=== PATIENT | female | born 1955 | race Caucasian/White ===

== ENCOUNTER 2020-01-27 15:41 | Emergency (ER) | payer OTHER ==
[2020-01-27 15:57] VITALS: BP 167/97; PULSE 87; O2SAT 98
[2020-01-27] MEDS ORDERED: TORAdol 30 mg Injection IM ONE (15:58)
--- NOTE | 2020-01-27 15:59 | ERPHSYRPT ---
- History of Present Illness Time Seen by Provider: 01/27/20 15:50 Source: patient Exam Limitations: no limitations Patient Subjective Stated Complaint: Fall- left knee pain Triage Nursing Assessment: Patient ambulated back to ED and transferred self to bed. Patient A+O X3. Patient's skin pink, warm and dry. Patient complains of falling this am out of her porch landing on her bottom but left leg bent backwards. Patient complains of constant sharp pain while ambulating 10/10. No swelling or bruising noted. Pulses noted. Physician History: Patient is a 64-year-old female who presents to our ED with complaints of left knee pain. Patient states she was descending steps while wearing socks when her foot slipped causing her to fall onto her buttock. Patient twisted her left knee in the process. Pain described as an ache that is localized to the anterolateral aspect of the left knee. Pain worse with weightbearing. Pain improved with rest. No other injuries reported. Pain described as an ache that is well localized. No radiation. Injury occurred just prior to arrival. Patient voices no other complaints or concerns at this time. The fall was not associated with any sort of neuro cardiovascular symptomology. Method of Injury: twisted Occurred: just prior to arrival Quality: constant, sharpness Severity of Pain-Max: moderate Severity of Pain-Current: mild Lower Extremities Pain: knee: left Modifying Factors: Improves With: rest Associated Symptoms: none, No dizzy, No fainted, No seizure, No snapping sensation Allergies/Adverse Reactions: No Known Drug Allergies Allergy (Verified 01/27/20 15:48) Hx Tetanus, Diphtheria Vaccination/Date Given: Yes Hx Influenza Vaccination/Date Given: Yes Hx Pneumococcal Vaccination/Date Given: No Immunizations Up to Date: Yes Travel Risk - International Travel Have you traveled outside of the country in past 3 weeks: No Have you or anyone close to you been diagnosed with or: No Do your reside in a community with a known COVID-19 case?: Yes If Yes where:: [facility] - Coronavirus Screening Has patient experienced Coronavirus symptoms: No - Review of Systems Constitutional: No Symptoms, No Fever, No Chills Eyes: No Symptoms Ears, Nose, & Throat: No Symptoms Respiratory: No Symptoms, No Cough, No Dyspnea Cardiac: No Symptoms, No Chest Pain, No Edema, No Syncope Abdominal/Gastrointestinal: No Symptoms, No Abdominal Pain, No Nausea, No Vomiting, No Diarrhea Genitourinary Symptoms: No Symptoms, No Dysuria Musculoskeletal: No Symptoms, No Back Pain, No Neck Pain Skin: No Symptoms, No Rash Neurological: No Symptoms, No Dizziness, No Focal Weakness, No Sensory Changes Psychological: No Symptoms Endocrine: No Symptoms Hematologic/Lymphatic: No Symptoms Immunological/Allergic: No Symptoms All Other Systems: Reviewed and Negative - Past Medical History Pertinent Past Medical History: No Neurological History: Migraines Cardiac History: Hypertension Respiratory History: No Pertinent History Endocrine Medical History: No Pertinent History Musculoskeletal History: Degenerative Disk Disease Other Medical History: Pt to see wallpaperer - Past Surgical History Past Surgical History: Yes Female Surgical History: Hysterectomy - Social History Smoking Status: Current every day smoker How long have you smoked: years Exposure to second hand smoke: Yes Drug Use: none Patient Lives Alone: Yes - Female History Hx Now: No - Nursing Vital Signs Nursing Vital Signs: Initial Vital Signs Pulse Rate 87 01/27/20 15:50 Respiratory Rate 18 01/27/20 15:50 Blood Pressure 167/97 01/27/20 15:50 O2 Sat by Pulse Oximetry 98 01/27/20 15:50 Pain Scale Pain Intensity 10 - Physical Exam General Appearance: alert Eyes, Ears, Nose, Throat Exam: moist mucous membranes Neck Exam: normal inspection, non-tender, supple Cardiovascular/Respiratory Exam: chest non-tender, normal breath sounds, regular rate/rhythm, no respiratory distress Gastrointestinal/Abdominal Exam: non-tender, no organomegaly, guarding Back Exam: normal inspection, No vertebral tenderness Hips Exam: bilateral: non-tender, normal inspection, normal range of motion, no evidence of injury Legs Exam: right leg: non-tender, normal inspection, normal range of motion, no evidence of injury, abrasions, left leg: bone tenderness (Tenderness to palpation along the left fibular head.), pain Knees Exam: right knee: non-tender, no evidence of injury, left knee: normal inspection, normal range of motion, pain, soft tissue tenderness Ankle Exam: bilateral ankle: non-tender, normal inspection, normal range of motion, no evidence of injury Foot Exam: bilateral foot: non-tender, normal inspection, normal range of motion , no evidence of injury (PT DP pulses palpable. Compartments are soft. Cap refill less than 2 seconds.) Neuro/Tendon Exam: normal sensation, normal motor functions, normal tendon functions Mental Status Exam: alert, oriented x 3, cooperative Skin Exam: normal color, warm, dry SpO2 Interpretation: normal SpO2: 98 O2 Delivery: Room Air - Course Nursing assessment & vital signs reviewed: Yes - Radiology Exams Knee X-ray Interpretation: Teleradiologist Report (2 views of the left lower leg demonstrate normal bones, normal articulation and soft tissues.) Ordered Tests: Active Orders 24 hr Category Date Time Status Crutches STAT Care 01/27/20 15:58 Active KNEE (1 OR 2 VIEW) Stat Exams 01/27/20 15:57 Completed LOWER LEG Stat Exams 01/27/20 16:08 Completed Medication Summary Discontinued Medications Generic Name Dose Route Start Last Admin Trade Name Herbie PRN Reason Stop Dose Admin Ketorolac Tromethamine 30 mg 01/27/20 15:58 01/27/20 16:03 Toradol 30 Mg Injection IM 01/27/20 15:59 30 mg STAT ONE Administration Ketorolac Tromethamine Confirm 01/27/20 16:00 Toradol 30 Mg Injection Administered 01/27/20 16:01 Dose 30 mg .ROUTE .[employer]-MED ONE - Progress Progress: improved Progress Note: 01/27/20 16:33 Patient reassessed. Pain improved. X-ray negative for acute pathology. There is a possibility that there may be injury to her knee that is non-bony and therefore will not be seen on the x-ray. Patient given bilateral axillary crutches. She will maintain nonweightbearing until told otherwise by her primary care physician. Patient understands that if symptoms persist she may require repeat imaging or possible MRI for further evaluation. Patient states she is ready for discharge. Counseled pt/family regarding: diagnosis, need for follow-up, rad results - Departure Departure Disposition: Home Clinical Impression: Left knee sprain, Fall Condition: Stable Critical Care Time: No Referrals: BENJAMÍN MARTIN [Primary Care Provider] - Instructions: Preventing Falls Additional Instructions: Discharge/Care Plan DAY,DANILO OSORIO was seen on 01/27/20 in the Emergency Room. The patient was counseled regarding Diagnosis,Lab results, Imaging studies, need for follow up and when to return to the Emergency Room. Prescriptions given: Discharge Note I have spoken with the patient and/or caregivers. I have explained the patient' s condition, diagnosis and treatment plan based on the information available to me at this time. I have answered the patient's and/or caregiver's questions and addressed any concerns. The patient and/or caregivers have as good understanding of the patient's diagnosis, condition and treatment plan as can be expected at this point. The vital signs have been stable. The patient's condition is stable and appropriate for discharge from the emergency department. The patient will pursue further outpatient evaluation with the primary care physician or other designated or consulting physician as outlined in the discharge instructions. The patient and/or caregivers are agreeable to this plan of care and follow-up instructions have been explained in detail. The patient and/or caregivers have received these instruction. The patient/and or caregivers are aware that any significant change in condition or worsening of symptoms should prompt an immediate return to this or the closest emergency department or call 911.
[2020-01-27] MEDS ORDERED: TORAdol 30 mg Injection ONE (16:00)
--- NOTE | 2020-01-27 16:25 | XRAY ---
Indication: Pain following fall. Comparison: None 2 view left lower leg demonstrates normal bones, articulation, and soft tissues.
--- NOTE | 2020-01-27 16:29 | XRAY ---
Indication: Pain following fall. Comparison: None AP/lateral left knee obtained. No bony, articular, or soft tissue abnormalities.
== END 2020-01-27 16:40 | disposition home or self-care (01) ==
LOC: ED 15:41
DX: S83.92XA Sprain of unspecified site of left knee, initial encounter (principal); W01.198A Fall on same level from slipping, tripping and stumbling with subsequent striking against other object, initial encounter; X50.1XXA Overexertion from prolonged static or awkward postures, initial encounter; Y92.89 Other specified places as the place of occurrence of the external cause; M25.562 Pain in left knee
CPT/HCPCS: 73560; 73590; 96372; 99284; J1885

== ENCOUNTER 2021-01-26 08:58 | Day surgery (SDC) | payer OTHER ==
[~2021-01-26 08:58] MED LIST: Ak-Dilate OPHTHALMIC*** 1.065 ML, Cyclogyl 1% OPHTH SOL 5 ML 1.065 ML, GATIFLOXACIN 0.5... OP ONE; BETADINE 5% OPHTHALMIC 30 ML OP ONE; Lactated Ringers 1,000 ML IV SCH; NON-FORMULARY ITEM OP ONE; TETRACAINE 0.5% STERI-UNIT SOL OP ONE; cefUROXime sodium 0.005 GM in Sodium Chloride Flush 30 ML*** 0.5 ML IJ SCH
[2021-01-26] MEDS ORDERED: Zofran 4 MG/2 ML VIAL IV PRN (09:00)
[2021-01-26] MEDS ORDERED: ACETAZOLAMIDE 250 MG TABLET PO ONE (09:00)
[2021-01-26] MEDS ORDERED: Lactated Ringers 1,000 ML IV ONE (09:25)
[2021-01-26] MEDS ORDERED: LIDOCAINE HCL 1% 50 MG/5 ML VL PF IJ ONE (10:00)
[2021-01-26] MEDS ORDERED: Epinephrine Preservative Free 1 MG/ML INTRAOP ONE (10:00)
[2021-01-26] MEDS ORDERED: DIPRIVAN 200 MG/20 ML IV ONE (10:30)
[2021-01-26 11:45] VITALS: BP 132/88; PULSE 66; O2SAT 98
== END 2021-01-26 11:45 | disposition home or self-care (01) ==
LOC: SDC 08:58
PROVIDERS: ATTEND Ophthalmology
DX: H25.812 Combined forms of age-related cataract, left eye (principal); I10 Essential (primary) hypertension; F41.9 Anxiety disorder, unspecified; G47.00 Insomnia, unspecified; Z79.899 Other long term (current) drug therapy
CPT/HCPCS: C1780; J0171; J2001; J2704; A9270-GY

== ENCOUNTER 2021-02-23 07:34 | Day surgery (SDC) | payer OTHER ==
[2021-02-23] MEDS ORDERED: Lactated Ringers 1,000 ML IV ONE (07:48)
[2021-02-23] MEDS ORDERED: ACETAZOLAMIDE 250 MG TABLET PO ONE (09:00)
[2021-02-23] MEDS ORDERED: Zofran 4 MG/2 ML VIAL IV PRN (09:00)
[2021-02-23] MEDS ORDERED: LIDOCAINE HCL 1% 50 MG/5 ML VL PF IJ ONE (10:00)
[2021-02-23] MEDS ORDERED: Epinephrine Preservative Free 1 MG/ML INTRAOP ONE (10:00)
[2021-02-23] MEDS ORDERED: DIPRIVAN 200 MG/20 ML IV ONE ×2 (10:16→10:35)
[2021-02-23 11:27] VITALS: BP 148/76; PULSE 69; O2SAT 98
== END 2021-02-23 11:25 | disposition home or self-care (01) ==
LOC: SDC 07:34
PROVIDERS: ATTEND Ophthalmology
DX: H25.811 Combined forms of age-related cataract, right eye (principal); I10 Essential (primary) hypertension; Z79.899 Other long term (current) drug therapy
CPT/HCPCS: 66982; C1780; J0171; J2001; J2704; A9270-GY

== ENCOUNTER 2022-07-09 09:33 | Emergency (ER) | payer OTHER ==
--- NOTE | 2022-07-09 09:55 | ERPHSYRPT ---
- History of Present Illness Time Seen by Provider: 07/09/22 09:54 Source: patient Physician History: This is a 66-year-old white female patient of nurse practitioner Rene who fell off of a cooler onto her lower back approxi-1 week ago. The pain subsided in this area after 1 to 2 days. Then again, approximately 3 days ago patient stepped into a hole and fell onto her lower back and now has difficulty going from a sitting position to standing position because of the pain. Patient denies right hip pain. She states that she does feel some pain in her right groin region as well. She is able to ambulate. She did not hit her head. She has no headache and she has no neck pain. Timing/Duration: day(s) (3) Method of Injury: fall Quality: radiating, sharp Back Pain Location: lumbar spine, coccyx, paraspinous muscles Severity of Pain-Max: moderate Severity of Pain-Current: moderate Modifying Factors: Improves With: movement Associated Symptoms: lower back pain, muscle spasms, No urinary incontinence, No loss of bowel control, No constipation, No problems urinating, No numbness in le gs/feet, No sensory/motor loss Previous symptoms: no prior history Allergies/Adverse Reactions: doxycycline Adverse Reaction (Severe, Verified 07/09/22 10:02) Swelling of Face Home Medications: lisinopriL [Lisinopril] 40 mg PO DAILY 01/13/21 [History] Amlodipine Besylate 5 mg [Norvasc 5 mg] 5 mg PO DAILY 07/09/22 [History] Buspirone HCl 10 mg PO BID PRN 07/09/22 [History] Hx Tetanus, Diphtheria Vaccination/Date Given: Yes Hx Influenza Vaccination/Date Given: Yes Hx Pneumococcal Vaccination/Date Given: No Travel Risk - International Travel Have you traveled outside of the country in past 3 weeks: No - Coronavirus Screening Are you exhibiting any of the following symptoms?: No Close contact with a COVID-19 positive Pt in past 14-21 Days: No - Review of Systems Constitutional: No Symptoms Eyes: No Symptoms Ears, Nose, & Throat: No Symptoms Respiratory: No Symptoms Cardiac: No Symptoms Abdominal/Gastrointestinal: No Symptoms Genitourinary Symptoms: No Symptoms Musculoskeletal: Back Pain, Fall Skin: No Symptoms Neurological: No Symptoms Psychological: No Symptoms Endocrine: No Symptoms Hematologic/Lymphatic: No Symptoms Immunological/Allergic: No Symptoms All Other Systems: Reviewed and Negative - Past Medical History Pertinent Past Medical History: Yes Neurological History: Migraines ENT History: Cataracts, Glaucoma Cardiac History: Hypertension Respiratory History: No Pertinent History Endocrine Medical History: No Pertinent History Musculoskeletal History: Arthritis, Degenerative Disk Disease GI Medical History: No Pertinent History History: No Pertinent History Psycho-Social History: Anxiety Female Reproductive Disorders: No Pertinent History Other Medical History: arthritis/back pain, - Past Surgical History Past Surgical History: Yes Neuro Surgical History: No Pertinent History Cardiac: No Pertinent History Respiratory: No Pertinent History Gastrointestinal: No Pertinent History Genitourinary: No Pertinent History Musculoskeletal: Orthopedic Surgery Female Surgical History: Hysterectomy Other Surgical History: left carpal tunnel repair,left ectopic prgnancy / ooperectomy/salpingoectomy left side - Social History Smoking Status: Former smoker How long have you smoked: years Exposure to second hand smoke: No Drug Use: none Patient Lives Alone: Yes - Nursing Vital Signs Nursing Vital Signs: Initial Vital Signs Temperature 97.4 F 07/09/22 09:43 Pulse Rate 67 07/09/22 09:43 Blood Pressure 122/79 07/09/22 09:43 O2 Sat by Pulse Oximetry 99 07/09/22 09:43 Pain Scale Pain Intensity [Right Lateral 10 Distal Back] Pain Intensity 10 - Physical Exam General Appearance: no apparent distress, alert Eye Exam: PERRL/EOMI, eyes nml inspection Ears, Nose, Throat Exam: normal ENT inspection, moist mucous membranes Neck Exam: normal inspection, non-tender, supple, full range of motion Respiratory Exam: normal breath sounds, lungs clear, airway intact, No chest tenderness, No respiratory distress Cardiovascular Exam: regular rate/rhythm, normal heart sounds, normal peripheral pulses Gastrointestinal Exam: soft, normal bowel sounds, No tenderness Pelvic Exam: not done Rectal Exam: not done Back Exam: normal inspection, vertebral tenderness (Lumbar spine region), decreased range of motion, muscle spasm Extremity Exam: normal inspection, normal range of motion, pelvis stable Neurologic Exam: alert, oriented x 3, cooperative, 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, normal mood/affect, nml cerebellar function, nml station & gait, sensation nml Skin Exam: normal color, warm, dry Lymphatic Exam: No adenopathy SpO2 Interpretation: normal O2 Delivery: Room Air - Course Nursing assessment & vital signs reviewed: Yes Ordered Tests: Active Orders 24 hr Category Date Time Status LUMBAR LIMITED (2 OR 3 VIEWS) Stat Exams 07/09/22 10:20 Taken PELVIS (1 OR 2 VIEWS) Stat Exams 07/09/22 10:20 Taken Medication Summary Discontinued Medications Generic Name Dose Route Start Last Admin Trade Name Herbie PRN Reason Stop Dose Admin Methylprednisolone Sodium 0 mg 07/09/22 10:19 07/09/22 10:33 Succinate 125 mg/ Sterile IM 07/09/22 10:20 125 mg Water 2 ml STAT ONE Administration Methylprednisolone Sodium Succinate Confirm 07/09/22 10:32 Methylprednis Sod Succ 125 Mg/2 Ml Vial Administered 07/09/22 10:33 Dose 125 mg .ROUTE .STK-MED ONE Orphenadrine Citrate 60 mg 07/09/22 10:19 07/09/22 10:33 Orphenadrine Citrate 60 Mg/2 Ml Vial IM 07/09/22 10:20 60 mg STAT ONE Administration Orphenadrine Citrate Confirm 07/09/22 10:32 Orphenadrine Citrate 60 Mg/2 Ml Vial Administered 07/09/22 10:33 Dose 60 mg .ROUTE .STK-MED ONE Oxycodone/Acetaminophen 1 tab 07/09/22 10:18 07/09/22 10:33 Oxycodone Hcl/Apap 5 Mg/325 Mg Tablet PO 07/09/22 10:19 1 tab STAT STA Administration Oxycodone/Acetaminophen Confirm 07/09/22 10:31 Oxycodone Hcl/Apap 5 Mg/325 Mg Tablet Administered 07/09/22 10:32 Dose 1 tab .ROUTE .STK-MED ONE Sterile Water Confirm 07/09/22 10:31 Water For Injection,Sterile 10 Ml Vial Administered 07/09/22 10:32 Dose 10 ml IJ .STK-MED ONE - Progress Progress: improved, pain not gone completely Progress Note: 07/09/22 11:26 X-ray of pelvis shows no acute fracture or dislocation. X-ray of lumbar spine shows no acute fracture or subluxation. Counseled pt/family regarding: diagnosis, need for follow-up, rad results - Departure Departure Disposition: Home Clinical Impression: Back pain Condition: Stable Critical Care Time: No Referrals: AZAM NEWTON NP [Primary Care Provider] - Follow up/PCP as directed Additional Instructions: Take your medication as prescribed. Activity as tolerated. Follow-up with your primary care physician on 07/11/2022 if your pain is persisting. Prescriptions: Oxycodone HCl/Acetaminophen [Percocet 5-325 mg Tablet] 1 each PO Q8H PRN PRN #6 tablet MDD 3 PRN Reason: Moderate To Severe Pain Orphenadrine Citrate 100 mg [Norflex 100 MG Tablet] 100 mg PO BID #10 tab
[2022-07-09 10:03] VITALS: BP 122/79; PULSE 67; O2SAT 99
[2022-07-09] MEDS ORDERED: PERCOCET TABLET 5/325MG PO STA (10:18)
[2022-07-09] MEDS ORDERED: solu-MEDROL 125 MG, Sterile H2O 10 ml 2 ML IM ONE ×2 (10:19)
[2022-07-09] MEDS ORDERED: Norflex 60 MG/2 ML IM ONE (10:19)
[2022-07-09] MEDS ORDERED: Sterile H2O 10 ml IJ ONE (10:31)
[2022-07-09] MEDS ORDERED: PERCOCET TABLET 5/325MG ONE (10:31)
[2022-07-09] MEDS ORDERED: solu-MEDROL ONE (10:32)
[2022-07-09] MEDS ORDERED: Norflex 60 MG/2 ML ONE (10:32)
--- NOTE | 2022-07-09 18:55 | XRAY ---
Indication: Pain following fall. Comparison: None Single AP pelvis demonstrates mild osteopenia. No other bony, articular, or soft tissue abnormalities.
--- NOTE | 2022-07-09 18:57 | XRAY ---
Indication: Pain following fall. Comparison: July 08, 2020 3 view lumbar spine unchanged again demonstrating mild osteopenia, minimal dextroscoliosis centered at L4, mild multilevel degenerative changes again greatest at L5-S1, and mild aortic calcifications. No new/acute abnormalities.
== END 2022-07-09 12:06 | disposition home or self-care (01) ==
LOC: ED 09:33
DX: M54.50 Low back pain, unspecified (principal); W18.42XA Slipping, tripping and stumbling without falling due to stepping into hole or opening, initial encounter; I10 Essential (primary) hypertension; Z79.891 Long term (current) use of opiate analgesic; Z79.899 Other long term (current) drug therapy
CPT/HCPCS: 72100; 72170; 96372; 99284; J2360; J2930; A9270-GY

== ENCOUNTER 2023-09-23 12:48 | Emergency (ER) | payer MEDICARE, OTHER ==
[2023-09-23 13:05] VITALS: TEMP 98.6
[2023-09-23] MEDS ORDERED: DUONEB 0.5-3 MG/3 ml Neb IH ONE ×2 (13:11→13:19)
[2023-09-23 13:29] LABS: Absolute Neutrophil Ct (ANC) 2.95 x10^3/uL (1.4-6.9); BASOPHIL % 0.7 % (0.0-0.4); Basophil (Absolute #) 0.03 x10^3/uL (0-0.4); Eosinophil % 1.8 % (0.00-5.0); Eosinophil (Absolute #) 0.08 x10^3/uL (0-0.5); Hematocrit 40.6 % (35-47); Hemoglobin 13.3 g/dL (12.0-16.0); IMMATURE GRAN # 0.01 x10^3u/L (0.00-0.03); IMMATURE GRAN % 0.2 % (0.00-0.4); Lymphocyte (Absolute #) 0.98 x10^3/uL (1.0-4.6); Lymphocytes % 21.9 % (24.0-44.0); Mean Cell Volume 90.4 fL (78-100); Mean Corpuscular Hemoglobin 29.6 pg (26-32); Mean Corpuscular Hgb Concent. 32.8 g/dL (32-36); Mean Platelet Volume 10.3 fL (7.5-11.0); Monocyte (Absolute #) 0.43 x10^3/uL (0.0-1.3); Monocytes % 9.6 % (0.0-12.0); Neutrophil % 65.8 % (36.0-66.0); Platelet Count 355 x10^3/uL (150-450); Red Blood Count 4.49 x10^6/uL (4.1-5.4); Red Cell Distribution Width 13.7 % (11.5-14.0); White Blood Count 4.5 x10^3/uL (4.0-10.5)
[2023-09-23 13:43] LABS: ALBUMIN 4.8 g/dL (3.5-5.0); ANION GAP 13.2 MEQ/L (5-15); BILIRUBIN,TOTAL 0.7 mg/dL (0.2-1.3); Calcium 10.1 mg/dL (8.4-10.2); Creatinine 1 0.75 mg/dL (0.52-1.04); EST GLOMERULAR FILTRATION RATE 88.3 ML/MIN; MAGNESIUM 2.1 mg/dL (1.6-2.3); Potassium 3.6 mmol/L (3.5-5.1); Total Protein 8.3 g/dL (6.3-8.2)
[2023-09-23 14:11] LABS: INFLUENZA B NEGATIVE (NEGATIVE); RESPIRATORY SYNCTIAL VIRUS NEGATIVE (NEGATIVE); SARS-CoV-2 Xpert Express NEGATIVE (NEGATIVE)
[2023-09-23 14:15] LABS: INFLUENZA A POSITIVE (NEGATIVE)
[2023-09-23 14:27] LABS: PROCALCITONIN 0.065 ng/mL (0.030-0.080)
[2023-09-23 14:45] VITALS: O2SAT 96
--- NOTE | 2023-09-23 14:55 | ERPHSYRPT ---
- History of Present Illness Time Seen by Provider: 09/23/23 13:06 Source: patient Exam Limitations: no limitations Patient Subjective Stated Complaint: C/O SOB for a few days especially with exertion. Patient states she has had a cough longer than that. Denies fever. Denies pain. Triage Nursing Assessment: Patient ambulated back to ER wearing a mask. She has an occassional, dry, non-productive cough. SOB present with exertion but not at rest. Lungs clear. Skin tone normal. ELIOT BANEGAS. Physician History: 67 years old female with history of tobacco use, hypertension, anxiety presented in the ER with complains of cough congestion and difficulty breathing. Patient reported started as a URI symptoms with runny nose and gradually sore throat and coughing more. It was initially dry but gradually having clear to yellow sputum small in amount with generalized chest soreness and some difficulty breathing and worn out feeling with exertion. No history of coronary artery disease. This has been going on for couple of days and got worse yesterday. Denies any fever or chills but does have mild headache. Positive c ontact with COVID-19. No abdominal pain nausea or vomiting reported. EKG is normal sinus rhythm at a rate of [address] elevations or depressions. Allergies/Adverse Reactions: doxycycline Adverse Reaction (Severe, Verified 09/23/23 12:54) Swelling of Face Home Medications: lisinopriL [Lisinopril] 40 mg PO DAILY 01/13/21 [History] Amlodipine Besylate 5 mg [Norvasc 5 mg] 5 mg PO DAILY 07/09/22 [History] Escitalopram Oxalate [Lexapro] 20 mg PO DAILY 09/23/23 [History] Lorazepam 1 mg [Ativan 1 MG] 1 tab PO TID PRN 09/23/23 [History] Hx Tetanus, Diphtheria Vaccination/Date Given: Yes Hx Influenza Vaccination/Date Given: No Hx Pneumococcal Vaccination/Date Given: No Immunizations Up to Date: Yes Travel Risk - International Travel Have you traveled outside of the country in past 3 weeks: No - Coronavirus Screening Are you exhibiting any of the following symptoms?: Yes Symptoms: Cough: New Onset, Shortness of Breath Close contact with a COVID-19 positive Pt in past 14-21 Days: Yes - Vaccine Status Have you recieved a Covid-19 vaccination: No - Review of Systems Constitutional: Fatigue Eyes: No Symptoms Ears, Nose, & Throat: Nose Congestion, Throat Swelling Respiratory: Cough, Dyspnea Cardiac: Chest Pain Abdominal/Gastrointestinal: No Symptoms Genitourinary Symptoms: No Symptoms Musculoskeletal: Arthralgias Skin: No Symptoms Neurological: Headache Endocrine: No Symptoms Hematologic/Lymphatic: No Symptoms - Past Medical History Pertinent Past Medical History: Yes Neurological History: Migraines ENT History: Cataracts, Glaucoma Cardiac History: Hypertension Respiratory History: No Pertinent History Endocrine Medical History: No Pertinent History Musculoskeletal History: Arthritis, Degenerative Disk Disease GI Medical History: No Pertinent History History: No Pertinent History Psycho-Social History: Anxiety, Depression Female Reproductive Disorders: No Pertinent History Other Medical History: arthritis/back pain, - Past Surgical History Past Surgical History: Yes Neuro Surgical History: No Pertinent History Cardiac: No Pertinent History Respiratory: No Pertinent History Gastrointestinal: No Pertinent History Genitourinary: No Pertinent History Musculoskeletal: Orthopedic Surgery Female Surgical History: Hysterectomy Other Surgical History: left carpal tunnel repair, left ectopic prgnancy / ooperectomy/salpingoectomy left side - Social History Smoking Status: Current every day smoker How long have you smoked: 20 years Exposure to second hand smoke: No Drug Use: none Patient Lives Alone: Yes - Nursing Vital Signs Nursing Vital Signs: Initial Vital Signs Temperature 98.6 F 09/23/23 12:57 Pulse Rate 83 09/23/23 12:57 Respiratory Rate 22 09/23/23 12:57 Blood Pressure 146/93 09/23/23 12:57 O2 Sat by Pulse Oximetry 97 09/23/23 12:57 Pain Scale Pain Intensity 0 - Physical Exam General Appearance: no apparent distress, alert Eye Exam: PERRL/EOMI Ears, Nose, Throat Exam: moist mucous membranes, pharyngeal erythema Neck Exam: normal inspection, non-tender, supple, full range of motion Respiratory Exam: normal breath sounds, lungs clear Cardiovascular Exam: regular rate/rhythm, normal heart sounds Gastrointestinal/Abdomen Exam: soft, normal bowel sounds, No tenderness Back Exam: normal inspection, normal range of motion Neurologic Exam: alert, oriented x 3, cooperative, office associate II-XII nml as tested Skin Exam: normal color SpO2 Interpretation: normal SpO2: 96 O2 Delivery: Room Air - Course EKG Interpreted by Me: RATE ([id number]), Sinus Rhythm, NORMAL AXIS, NORMAL INTERVALS, NORMAL QRS Ordered Tests: Active Orders 24 hr Category Date Time Status Contingents Supervisor STAT Care 09/23/23 13:12 Active EKG-ER Only STAT Care 09/23/23 13:11 Active IV Insertion STAT Care 09/23/23 13:11 Active CHEST 1 VIEW (PORTABLE) Stat Exams 09/23/23 13:12 Taken BLOOD CULTURE Stat Lab 09/23/23 13:40 Received CBC W DIFF Stat Lab 09/23/23 13:20 Completed CMP Stat Lab 09/23/23 13:20 Completed Lactic Acid Stat Lab 09/23/23 13:25 Completed MAGNESIUM Stat Lab 09/23/23 13:20 Completed NT PRO BNPII Stat Lab 09/23/23 13:20 Completed PROCALCITONIN Stat Lab 09/23/23 13:20 Completed TROPONIN Q4H Lab 09/23/23 13:20 Completed TROPONIN Q4H Lab 09/23/23 17:15 Ordered TROPONIN Q4H Lab 09/23/23 21:15 Ordered Respiratory Therapy Assessment DAILY RT 09/23/23 13:24 Active Medication Summary Discontinued Medications Generic Name Dose Route Start Last Admin Trade Name Freq PRN Reason Stop Dose Admin Albuterol/Ipratropium 3 ml 09/23/23 13:11 09/23/23 13:24 Ipratropium/Albuterol Sulfate 3 Ml Ampul.Neb IH 09/23/23 13:12 3 ml STAT ONE Administration Albuterol/Ipratropium Confirm 09/23/23 13:19 Ipratropium/Albuterol Sulfate 3 Ml Ampul.Neb Administered 09/23/23 13:20 Dose 3 ml IH .STK-MED ONE Lab/Rad Data: Laboratory Result Diagrams 09/23/23 13:20 09/23/23 13:20 Laboratory Results 09/23/23 09/23/23 09/23/23 Range/Units 13:25 13:20 13:20 WBC (4.0-10.5) x10^3/uL RBC (4.1-5.4) x10^6/uL Hgb (12.0-16.0) g/dL Hct (35-47) % MCV (78-100) fL MCH (26-32) pg MCHC (32-36) g/dL RDW (11.5-14.0) % Plt Count (150-450) x10^3/uL MPV (7.5-11.0) fL Gran % (36.0-66.0) % Immature Gran % (Auto) (0.00-0.4) % Nucleat RBC Rel Count (0.00-0.1) % Eos # (Auto) (0-0.5) x10^3/uL Immature Gran # (Auto) (0.00-0.03) x10^3u/L Absolute Lymphs (auto) (1.0-4.6) x10^3/uL Absolute Monos (auto) (0.0-1.3) x10^3/uL Absolute Nucleated RBC (0.00-0.01) x10^3u/L Lymphocytes % (24.0-44.0) % Monocytes % (0.0-12.0) % Eosinophils % (0.00-5.0) % Basophils % (0.0-0.4) % Absolute Granulocytes (1.4-6.9) x10^3/uL Basophils # (0-0.4) x10^3/uL Sodium (137-145) mmol/L Potassium (3.5-5.1) mmol/L Chloride (98-107) mmol/L Carbon Dioxide (22-30) mmol/L Anion Gap (5-15) MEQ/L BUN (7-17) mg/dL Creatinine (0.52-1.04) mg/dL Estimated GFR ML/MIN Glucose (74-106) mg/dL Lactic Acid 1.0 (0.4-2.0) Calcium (8.4-10.2) mg/dL Magnesium (1.6-2.3) mg/dL Total Bilirubin (0.2-1.3) mg/dL AST (14-36) U/L ALT (0-35) U/L Alkaline Phosphatase (38-126) U/L Troponin I (0.000-0.034) ng/mL NT-Pro-B Natriuret Pep 58.0 (<300) pg/mL Serum Total Protein (6.3-8.2) g/dL Albumin (3.5-5.0) g/dL Procalcitonin 0.065 (0.030-0.080) ng/mL Influenza Type A Ag POSITIVE (NEGATIVE) Influenza Type B Ag NEGATIVE (NEGATIVE) RSV (PCR) NEGATIVE (NEGATIVE) SARS-CoV-2 (PCR) NEGATIVE (NEGATIVE) 09/23/23 09/23/23 09/23/23 Range/Units 13:20 13:20 13:20 WBC 4.5 (4.0-10.5) x10^3/uL RBC 4.49 (4.1-5.4) x10^6/uL Hgb 13.3 (12.0-16.0) g/dL Hct 40.6 (35-47) % MCV 90.4 (78-100) fL MCH 29.6 (26-32) pg MCHC 32.8 (32-36) g/dL RDW 13.7 (11.5-14.0) % Plt Count 355 (150-450) x10^3/uL MPV 10.3 (7.5-11.0) fL Gran % 65.8 (36.0-66.0) % Immature Gran % (Auto) 0.2 (0.00-0.4) % Nucleat RBC Rel Count 0.0 (0.00-0.1) % Eos # (Auto) 0.08 (0-0.5) x10^3/uL Immature Gran # (Auto) 0.01 (0.00-0.03) x10^3u/L Absolute Lymphs (auto) 0.98 L (1.0-4.6) x10^3/uL Absolute Monos (auto) 0.43 (0.0-1.3) x10^3/uL Absolute Nucleated RBC 0.00 (0.00-0.01) x10^3u/L Lymphocytes % 21.9 L (24.0-44.0) % Monocytes % 9.6 (0.0-12.0) % Eosinophils % 1.8 (0.00-5.0) % Basophils % 0.7 (0.0-0.4) % Absolute Granulocytes 2.95 (1.4-6.9) x10^3/uL Basophils # 0.03 (0-0.4) x10^3/uL Sodium 135 L (137-145) mmol/L Potassium 3.6 (3.5-5.1) mmol/L Chloride 105 (98-107) mmol/L Carbon Dioxide 21 L (22-30) mmol/L Anion Gap 13.2 (5-15) MEQ/L BUN 14 (7-17) mg/dL Creatinine 0.75 (0.52-1.04) mg/dL Estimated GFR 88.3 ML/MIN Glucose 136 H (74-106) mg/dL Lactic Acid (0.4-2.0) Calcium 10.1 (8.4-10.2) mg/dL Magnesium 2.1 (1.6-2.3) mg/dL Total Bilirubin 0.70 (0.2-1.3) mg/dL AST 27 (14-36) U/L ALT 26 (0-35) U/L Alkaline Phosphatase 75 (38-126) U/L Troponin I < 0.012 (0.000-0.034) ng/mL NT-Pro-B Natriuret Pep (<300) pg/mL Serum Total Protein 8.3 H (6.3-8.2) g/dL Albumin 4.8 (3.5-5.0) g/dL Procalcitonin (0.030-0.080) ng/mL Influenza Type A Ag (NEGATIVE) Influenza Type B Ag (NEGATIVE) RSV (PCR) (NEGATIVE) SARS-CoV-2 (PCR) (NEGATIVE) - Progress Progress: improved, re-examined Air Movement: good Progress Note: 09/23/23 14:59 67-year-old is evaluated for cough congestion with some dyspnea which initially started as a URI symptoms. Patient is not tachypneic or tachycardic. She is maintaining oxygen saturation around 97% on room air. EKG is normal sinus rhythm. Lungs fairly clear to auscultation. She is given DuoNeb as she has a history of tobacco use and feeling better on reevaluation with improvement in the tightness. Chest x-ray reviewed by me is negative for any acute cardiopulmonary findings, official report is pending. Patient has normal white count, fairly unremarkable chemistries including lactate and procalcitonin, negative troponins. Patient has positive influenza A but negative COVID and influenza B. Symptoms does not seem to be cardiac but more of a infectious etiology. Not concerned about pulmonary embolism. I will treat her with Childers iflu and will also give albuterol to use as needed and continue with Mucinex. Discussed signs symptoms of worsening needing return to ER which she seems understanding. Stable for discharge. 09/23/23 15:02 Blood Culture(s) Obtained: No Antibiotics given: Yes, No Counseled pt/family regarding: lab results, diagnosis, need for follow-up, rad results Medical Desision Making - Independent Historian Additional History obtained from: Child - Diagnostic Testing Diagnostic test were ordered, analyzed, and reviewed by me: Yes Radiological Interpretation: Interpreted by me, Reviewed by me - Risk of complications The pt has a mod risk of morbidity or mortality based on: Need for prescription drug management - Departure Departure Disposition: Home Clinical Impression: Influenza A, Viral URI with cough Condition: Stable Critical Care Time: No Referrals: LUIS MON MD [Primary Care Provider] - Follow up with PCP 2 days Instructions: Flu, Adult (DC) Additional Instructions: Use inhaler as needed. Take Tylenol/ibuprofen for fever chills, body aches. D rink plenty of fluids to keep yourself well-hydrated. Take ofyu-sby-yfcusio Mucinex as needed. Follow-up with primary care for reevaluation. Return to ER for worsening cough congestion or if having difficulty breathing etc. Prescriptions: Albuterol Sulfate [Albuterol Sulfate Hfa] 8.5 gm IH Q6H PRN 7 Days #1 inh PRN Reason: Cough Oseltamivir 75 mg [Tamiflu 75MG Capsule] 75 mg PO BID #10 cap
[2023-09-23 15:11] VITALS: BP 130/73; PULSE 80; RESP 18
--- NOTE | 2023-09-23 20:17 | XRAY ---
Indication: Cough and short of breath 2 weeks. Comparison: November 23, 2012 Portable chest remains inflated and clear. Heart not enlarged. Bony thorax intact. No new/acute findings.
== END 2023-09-23 15:12 | disposition home or self-care (01) ==
LOC: ED 12:48
DX: J10.1 Influenza due to other identified influenza virus with other respiratory manifestations (principal); R05.9 Cough, unspecified; R06.02 Shortness of breath; R07.9 Chest pain, unspecified; I10 Essential (primary) hypertension; Z79.899 Other long term (current) drug therapy; Z28.310 Unvaccinated for COVID-19; Z72.0 Tobacco use
CPT/HCPCS: 0241U; 36000; 36415; 71045; 80053; 83605; 83735; 83880; 84145; 84484; 85025; 87040; 93005; 93041; 94640; 99284; A9270-GY

== ENCOUNTER 2025-04-02 16:48 | Emergency (ER) | payer MEDICARE, OTHER ==
--- NOTE | 2025-04-02 16:55 | ERPHSYRPT ---
- History of Present Illness Time Seen by Provider: 04/02/25 16:54 Source: patient Exam Limitations: no limitations Physician History: This is a right handed 69-year-old white female patient brought to the emergency department by private vehicle accompanied by her daughter. She her primary care provider is Dr. Mon. The patient suffered a 3 cm dorsal aspect skin laceration of her left hand. Tetanus status is uncertain. Patient has 100 pound dog and as she open the dog pulled her out the door and the door swung open and swung back. The skin of her left hand cut the edge of the metal door causing a skin laceration. Patient is a daily smoker of tobacco. Patient has a history of hypertension, COPD, anxiety, arthritis and degenerative disc disease. Occurred: just prior to arrival Quality: constant Severity of Pain-Max: mild Severity of Pain-Current: mild Extremities Pain Location: hand: left (Dorsal aspect) Associated Symptoms: none Allergies/Adverse Reactions: doxycycline Adverse Reaction (Severe, Verified 09/23/23 12:54) Swelling of Face Home Medications: lisinopriL [Lisinopril] 40 mg PO DAILY 01/13/21 [History] Amlodipine Besylate 5 mg [Norvasc 5 mg] 5 mg PO DAILY 07/09/22 [History] Escitalopram Oxalate [Lexapro] 20 mg PO DAILY 09/23/23 [History] Lorazepam 1 mg [Ativan 1 MG] 1 tab PO TID PRN 09/23/23 [History] Hx Tetanus, Diphtheria Vaccination/Date Given: Yes Hx Influenza Vaccination/Date Given: No Hx Pneumococcal Vaccination/Date Given: No Travel Risk - International Travel Have you traveled outside of the country in past 3 weeks: No - Emerging Infectious Disease Are you exhibiting symptoms associated with any current EIDs: No - Review of Systems Constitutional: No Symptoms Eyes: No Symptoms Ears, Nose, & Throat: No Symptoms Respiratory: No Symptoms Cardiac: No Symptoms Abdominal/Gastrointestinal: No Symptoms Genitourinary Symptoms: No Symptoms Musculoskeletal: No Symptoms Skin: Other (Skin laceration dorsal aspect left hand) Neurological: No Symptoms Psychological: No Symptoms Endocrine: No Symptoms Hematologic/Lymphatic: No Symptoms Immunological/Allergic: No Symptoms All Other Systems: Reviewed and Negative - Past Medical History Pertinent Past Medical History: Yes Neurological History: Migraines ENT History: Cataracts, Glaucoma Cardiac History: Hypertension Respiratory History: No Pertinent History Endocrine Medical History: No Pertinent History Musculoskeletal History: Arthritis, Degenerative Disk Disease GI Medical History: No Pertinent History History: No Pertinent History Psycho-Social History: Anxiety, Depression Female Reproductive Disorders: No Pertinent History Other Medical History: arthritis/back pain, - Past Surgical History Past Surgical History: Yes Neuro Surgical History: No Pertinent History Cardiac: No Pertinent History Respiratory: No Pertinent History Gastrointestinal: No Pertinent History Genitourinary: No Pertinent History Musculoskeletal: Orthopedic Surgery Female Surgical History: Hysterectomy Other Surgical History: left carpal tunnel repair, left ectopic prgnancy / ooperectomy/salpingoectomy left side - Social History Smoking Status: Current every day smoker How long have you smoked: 20 years Exposure to second hand smoke: No Drug Use: none Patient Lives Alone: Yes - Nursing Vital Signs Nursing Vital Signs: Initial Vital Signs Temperature 97.0 F 04/02/25 16:58 Pulse Rate 96 H 04/02/25 16:58 Respiratory Rate 18 04/02/25 16:58 Blood Pressure 128/78 04/02/25 16:58 O2 Sat by Pulse Oximetry 96 04/02/25 16:58 Pain Scale Pain Intensity 5 - Physical Exam General Appearance: no apparent distress, alert, anxiety, thin Eyes, Ears, Nose, Throat Exam: normal ENT inspection, moist mucous membranes Neck Exam: normal inspection, non-tender, supple, full range of motion Cardiovascular/Respiratory Exam: chest non-tender, no respiratory distress Abdominal Exam: non-tender Back Exam: normal inspection Shoulder Exam: normal inspection, non-tender, no evidence of injury, normal ROM Elbow/Forearm Exam: normal inspection, non-tender, no evidence of injury, normal ROM Wrist Exam: normal inspection, non-tender, no evidence of injury, normal ROM Hand Exam: normal ROM, laceration (Skin laceration dorsal aspect left hand. Approximately 3 cm skin laceration. No active bleeding, neurovascular intact, no tendon injury, no foreign body) Neuro/Tendon Exam: normal sensation, normal motor functions, normal tendon functions, no evidence tendon injury Mental Status Exam: alert, oriented x 3, cooperative Skin Exam: laceration (See above extremity section) SpO2 Interpretation: normal O2 Delivery: Room Air Procedures - Laceration/Wound Repair Left Dorsal Hand Time of Procedure: 17:20 Wound Length (cm): 3 Wound's Depth, Shape: superficial, linear Wound Explored: clean (Wound explored to the base in a bloodless field and no foreign body noted) Irrigated: Yes Hibiclens Prep: Yes Anesthesia: 1% Lidocaine Volume Anesthetic (ccs): 3 Wound Repaired With: sutures Suture Size/Type: 4-0, nylon Number of Sutures: 3 Layer Closure?: No Progress: 04/02/25 17:33 There were no complications and patient tolerated the procedure well - Course Nursing assessment & vital signs reviewed: Yes Ordered Tests: Medication Summary Discontinued Medications Generic Name Dose Route Start Last Admin Trade Name Herbie PRN Reason Stop Dose Admin Bacitracin Zinc 0.9 each 04/02/25 17:09 04/02/25 17:23 Bacitracin Packet 1 Each Pckt TP 04/02/25 17:10 1 each STAT ONE Administration Bacitracin Zinc Confirm 04/02/25 17:21 Bacitracin Packet 1 Each Pckt Administered 04/02/25 17:22 Dose 1 each .ROUTE .STK-MED ONE Diphtheria/Tetanus/Acell Pertussis 0.5 ml 04/02/25 17:09 04/02/25 17:23 Tdap --Diph,Pertuss(Acell),Tet Vac/Pf 0.5 Ml Vial IM 04/02/25 17:10 0.5 ml .ONCE ONE Administration Diphtheria/Tetanus/Acell Pertussis Confirm 04/02/25 17:21 Tdap --Diph,Pertuss(Acell),Tet Vac/Pf 0.5 Ml Vial Administered 04/02/25 17:22 Dose 0.5 ml IM .STK-MED ONE Lidocaine HCl 5 ml 04/02/25 17:06 04/02/25 17:08 Lidocaine Hcl 1% 20 Ml Mdv 20 Ml Ml IJ 04/02/25 17:07 5 ml STAT ONE Administration Lidocaine HCl Confirm 04/02/25 17:07 Lidocaine Hcl 1% 20 Ml Mdv 20 Ml Ml Administered 04/02/25 17:08 Dose 5 ml .ROUTE .STK-MED ONE - Progress Progress: improved Progress Note: 04/02/25 17:14 My medical decision making and the assignment of low complexity of this patient's medical issue today is based on review of the patient's past medical history, review of the patient's medication list, reviewed patient drug allergy list, history presence of physical findings on examination. The workup in this patient does not necessitate any laboratory or radiographic studies. 04/02/25 17:34 Differential diagnosis includes but is not limited to left hand contusion, left hand abrasion, left hand skin laceration Counseled pt/family regarding: diagnosis, need for follow-up Medical Desision Making - Independent Historian Additional History obtained from: Family - Diagnostic Testing Diagnostic test were ordered, analyzed, and reviewed by me: No - Risk of complications Low Risk: Low risk of morbidity from additional dx testing or treatment - Departure Departure Disposition: Home Clinical Impression: Laceration of skin of left hand Condition: Stable Critical Care Time: No Referrals: LUIS MON MD [Primary Care Provider, INTERNAL MEDICINE] - Follow up/PCP as directed Additional Instructions: Keep the current bandage in place until the evening of 04/03/2025. At that time you may remove the dressing and rinse the site off each day thereafter with soapy water. Blot dry or use a hair assistant and then reapply antibiotic ointment of choice and a bandage. Suture removal in 7 to 10 days. Take your antibiotics and other medications as prescribed. Prescriptions: Cephalexin Mh 500 mg [Keflex 500 mg] 500 mg PO TID #15 cap
[2025-04-02 16:59] VITALS: PULSE 96; RESP 18; TEMP 97; O2SAT 96
[2025-04-02 17:00] VITALS: BP 128/78
[2025-04-02] MEDS ORDERED: XYLOCAINE 1% HCL 20 ML MDV ONE (17:07)
[2025-04-02] MEDS: XYLOCAINE 1% HCL 20 ML MDV IJ ONE (17:08)
[2025-04-02] MEDS ORDERED: Adacel Vial IM ONE (17:21)
[2025-04-02] MEDS ORDERED: BACIGUENT PACKET ONE (17:21)
[2025-04-02] MEDS: BACIGUENT PACKET TP ONE (17:23)
[2025-04-02] MEDS: Adacel Vial IM ONE (17:23)
== END 2025-04-02 18:01 | disposition home or self-care (01) ==
LOC: ED 16:48
DX: S61.412A Laceration without foreign body of left hand, initial encounter (principal); W26.8XXA Contact with other sharp object(s), not elsewhere classified, initial encounter; I10 Essential (primary) hypertension; Z79.899 Other long term (current) drug therapy; Z72.0 Tobacco use; Z23 Encounter for immunization